=== PATIENT | male | born 1990 | race Two or more races ===

== ENCOUNTER 2016-12-26 20:06 | Inpatient (IN) | payer SELFPAY ==
[2016-12-26] MEDS ORDERED: NORMAL SALINE 1000 ML 1,000 ML IV PRN ×2 (21:28→22:25)
[2016-12-26] MEDS ORDERED: ONDANSETRON HCL INJ/PF 4 MG/2 ML SDV IV ONE (21:37)
[2016-12-26 22:09] LABS: HEMATOCRIT 45.9 % (37.9-51.0); HEMOGLOBIN 14.7 g/dL (13.5-17.0); HGB HCT DIFFERENCE -1.8; MEAN CORPUSCULAR HEMOGLOBIN 30.7 pg (27.0-33.4); MEAN CORPUSCULAR HGB CONC 32.1 g/dL (32.0-36.0); MEAN CORPUSCULAR VOLUME 95 fl (80-97); RED BLOOD COUNT 4.81 10^6/uL (4.35-5.55); RED CELL DISTRIBUTION WIDTH 13.1 % (11.5-14.0); VENOUS BLOOD BASE EXCESS -19.5 mmol/L; VENOUS BLOOD HCO3 9.8 mmol/L (20-32); VENOUS BLOOD PCO2 34.4 mmHg (35-63); WHITE BLOOD COUNT 24.8 10^3/uL (4.0-10.5)
[2016-12-26 22:12] LABS: VENOUS BLOOD PH 7.07 (7.30-7.42)
[2016-12-26 22:14] LABS: ALANINE AMINOTRANSFERASE 28 U/L (21-72); ALBUMIN 4.9 g/dL (3.5-5.0); ALKALINE PHOSPHATASE 106 U/L (38-126); ASPARTATE AMINO TRANSFERASE 18 U/L (17-59); BILIRUBIN,DIRECT 0.7 mg/dL (0.0-0.4); BILIRUBIN,TOTAL 1.3 mg/dL (0.2-1.3); BLOOD UREA NITROGEN 37 mg/dL (7-20); CALCIUM 9.5 mg/dL (8.4-10.2); CHLORIDE 87 mmol/L (98-107); CREATININE RESULT 2.13 mg/dL (0.52-1.25); SODIUM 135.8 mmol/L (137-145)
[2016-12-26 22:19] LABS: APPEARANCE,URINE CLEAR; BILIRUBIN,URINE NEGATIVE (NEGATIVE); GLUCOSE, URINE >=500 mg/dL (NEGATIVE); KETONES,URINE 80 mg/dL (NEGATIVE); LEUKOCYTE ESTERASE,URINE NEGATIVE (NEGATIVE); NITRITE,URINE NEGATIVE (NEGATIVE); PROTEIN,URINE NEGATIVE (NEGATIVE); URINE SPECIFIC GRAVITY 1.023; UROBILINOGEN,URINE NEGATIVE mg/dL (<2.0)
[2016-12-26 22:27] LABS: ANION GAP 41 (5-19)
[2016-12-26 22:29] LABS: CARBON DIOXIDE 8 mmol/L (22-30); GLUCOSE 1066 mg/dL (75-110)
[2016-12-26 22:33] LABS: BAND NEUTROPHILS % (MANUAL) 5 % (3-5); BASOPHILS % (MANUAL) 0 % (0-2); EOSINOPHILS % (MANUAL) 0 % (0-6); LYMPHOCYTES % (MANUAL) 2 % (13-45); TOTAL CELLS COUNTED 100
[2016-12-26] MEDS ORDERED: INSULIN REG, HUMAN 100 UNIT/ML 3 ML VIAL (PYX) IV ONE (22:34)
[2016-12-26 22:35] LABS: BURR CELLS 1+; POLYCHROMASIA SLIGHT; TOXIC GRANULATION 1+
[2016-12-26] MEDS ORDERED: INSULIN REG, HUMAN 100 UNIT/ML 3 ML VIAL (PYX) ONE (22:52)
--- NOTE | 2016-12-26 23:05 | ER Document Report ---
ED General - General Chief Complaint: High Blood Sugar Stated Complaint: HIGH BLOOD SUGAR DIABETIC Time Seen by Provider: 12/26/16 21:27 Mode of Arrival: Medic Information source: Patient Notes: 26-year-old diabetic male noted to have been in DKA back in 2011 presents confused with complaints of high blood sugar. 2 readings were noted to be high. Patient admits to nausea vomiting states he has not taken his insulin today TRAVEL OUTSIDE OF THE [place] IN LAST 30 DAYS: No - HPI Onset: Last week Onset/Duration: Persistent Quality of pain: Achy Severity: Moderate Pain Level: 3 Associated symptoms: Nausea, Vomiting, Weakness Exacerbated by: Denies Relieved by: Denies Similar symptoms previously: Yes Recently seen / treated by doctor: No - Related Data Allergies/Adverse Reactions: No Known Allergies Allergy (Unverified 03/13/11 03:33) Past Medical History - Social History Smoking Status: Never Smoker Cigarette use (# per day): No Chew tobacco use (# tins/day): No Smoking Education Provided: No Family History: Reviewed & Not Pertinent Pulmonary Medical History: Reports: Hx Asthma - childhood Denies: Hx Tuberculosis Endocrine Medical History: Reports: Hx Diabetes Mellitus Type 1 Psychiatric Medical History: Reports: Hx Depression Past Surgical History: Reports: Hx Thyroid Surgery, Hx Tonsillectomy. Denies: Hx Pacemaker - Immunizations Hx Diphtheria, Pertussis, Tetanus Vaccination: Yes Review of Systems - Review of Systems Notes: REVIEW OF SYSTEMS: CONSTITUTIONAL : Denies fever, chills, or sweats. Denies recent illness. EENT: Denies eye, ear, throat, or mouth pain or symptoms. Denies nasal or sinus congestion or discharge. Denies throat, tongue, or mouth swelling or difficulty swallowing. CARDIOVASCULAR: Denies chest pain. Denies palpitations or racing or irregular heart beat. Denies ankle edema. RESPIRATORY: Denies cough, cold, or chest congestion. Denies shortness of breath, difficulty breathing, or wheezing. GASTROINTESTINAL: Admits to nausea vomiting GENITOURINARY: Denies difficulty urinating, painful urination, burning, frequency, blood in urine, or discharge. MUSCULOSKELETAL: Denies back or neck pain or stiffness. Denies joint pain or swelling. SKIN: Denies rash, lesions or sores. HEMATOLOGIC : Denies easy bruising or bleeding. LYMPHATIC: Denies swollen, enlarged glands. NEUROLOGICAL: Admits to confusion PSYCHIATRIC: Denies anxiety or stress. Denies depression, suicidal ideation, or homicidal ideation. ALL OTHER SYSTEMS REVIEWED AND NEGATIVE. Dictation was performed using [employer] voice recognition software PHYSICAL EXAMINATION: GENERAL: Drowsy in moderate acute distress HEAD: Atraumatic, normocephalic. EYES: Pupils equal round and reactive to light, extraocular movements intact, sclera anicteric, conjunctiva are normal. ENT: Nares patent, oropharynx clear without exudates. Moist mucous membranes. NECK: Normal range of motion, supple without lymphadenopathy LUNGS: Breath sounds clear to auscultation bilaterally and equal. No wheezes rales or rhonchi. HEART: Tachycardic ABDOMEN: Soft, nontender, nondistended abdomen. No guarding, no rebound. No masses appreciated. Musculoskeletal: Normal range of motion, no pitting or edema. No cyanosis. NEUROLOGICAL: GCS is 15 patient's alert and oriented to questions but does appear drowsy PSYCH: Normal mood, normal affect. SKIN: Warm, Dry, normal turgor, no rashes or lesions noted. Physical Exam - Vital signs Vitals: Resp Pulse Ox 22 H 99 12/26/16 21:58 12/26/16 21:58 Course - Re-evaluation Re-evalutation: 12/27/16 00:13 Patient is in obvious DKA, he was given 4 L normal saline, insulin bolus and drip was immediately started. Patient will be admitted to the ICU as he is quite ill - Vital Signs Vital signs: Temp Pulse Resp BP Pulse Ox 23 H 93/47 L 98 12/26/16 23:17 12/26/16 23:17 12/26/16 23:17 - Laboratory Result Diagrams: 12/26/16 21:30 12/26/16 21:30 Laboratory results interpreted by me: 12/26/16 12/26/16 12/26/16 21:30 21:30 21:30 WBC 24.8 H Seg Neuts % (Manual) 88 H Lymphocytes % (Manual) 2 L Abs Neuts (Manual) 23.1 H VBG pH 7.07 L* VBG pCO2 34.4 L VBG HCO3 9.8 L Sodium 135.8 L Potassium 6.0 H* Chloride 87 L Carbon Dioxide 8 L* Anion Gap 41 H BUN 37 H Creatinine 2.13 H Est GFR ( Amer) 46 L Est GFR (Non-Af Amer) 38 L Glucose 1066 H* Direct Bilirubin 0.7 H Urine Glucose (UA) Urine Ketones 12/26/16 21:30 WBC Seg Neuts % (Manual) Lymphocytes % (Manual) Abs Neuts (Manual) VBG pH VBG pCO2 VBG HCO3 Sodium Potassium Chloride Carbon Dioxide Anion Gap BUN Creatinine Est GFR ( Amer) Est GFR (Non-Af Amer) Glucose Direct Bilirubin Urine Glucose (UA) >=500 H Urine Ketones 80 H Critical Care Note - Critical Care Note Total time excluding time spent on procedures (mins): 40 Comments: 40 minutes of critical care time spent in direct contact evaluating and reevaluating the patient, treating symptoms, reviewing labs and studies and speaking with family and consultants excluding any procedures Discharge - Discharge Clinical Impression: DKA (diabetic ketoacidoses) Qualifiers: Diabetes mellitus type: type 1 Diabetes mellitus complication detail: without coma Qualified Code(s): E10.10 - Type 1 diabetes mellitus with ketoacidosis without coma Condition: Poor Disposition: ADMITTED INPATIENT Admitting Provider: Hospitalist Unit Admitted: ICU
[2016-12-27] MEDS ORDERED: ACETAMINOPHEN 325 MG TABLET PO PRN (00:06)
[2016-12-27] MEDS ORDERED: GLUCAGON,HUMAN RECOMB 1 MG INJ IM PRN (00:06)
[2016-12-27] MEDS ORDERED: ONDANSETRON HCL INJ/PF 4 MG/2 ML SDV IV PRN ×2 (00:06→11:00)
[2016-12-27] MEDS ORDERED: DEXTROSE 40% GEL 15 GM TUBE PO PRN ×4 (00:06)
[2016-12-27] MEDS ORDERED: NORMAL SALINE 100 ML with INSULIN REGULAR, HUMAN 100 UNIT IV PRN ×2 (00:06)
[2016-12-27] MEDS ORDERED: DEXTROSE 50%-WATER 25 GM/50 ML DISP.SYRIN IV PRN ×4 (00:06)
[2016-12-27] MEDS ORDERED: GLUCAGON,HUMAN RECOMB 1 MG INJ SUBCUT PRN (00:06)
[2016-12-27] MEDS ORDERED: INSULIN REG, HUMAN 100 UNIT/ML 3 ML VIAL (PYX) IV ONE (00:07)
[2016-12-27] MEDS ORDERED: NORMAL SALINE 1000 ML 1,000 ML IV SCH (00:15)
[2016-12-27 00:46] LABS: BLOOD UREA NITROGEN 39 mg/dL (7-20); CALCIUM 8.1 mg/dL (8.4-10.2); CHLORIDE 102 mmol/L (98-107); CREATININE RESULT 2.01 mg/dL (0.52-1.25); MAGNESIUM 2.2 mg/dL (1.6-2.3); PHOSPHORUS 6.2 mg/dL (2.5-4.5); SODIUM 142.6 mmol/L (137-145)
[2016-12-27 01:04] LABS: ANION GAP 33 (5-19); POTASSIUM 4.5 mmol/L (3.6-5.0)
[2016-12-27 01:06] LABS: CARBON DIOXIDE 8 mmol/L (22-30); GLUCOSE 856 mg/dL (75-110)
[2016-12-27] MEDS: POTASSI CL 20 MEQ/D5-1/2NS 1L 1,000 ML IV PRN ×3 (03:10→13:12)
[2016-12-27 04:00] LABS: HEMATOCRIT 37.6 % (37.9-51.0); HEMOGLOBIN 13.3 g/dL (13.5-17.0); HGB HCT DIFFERENCE 2.3; MEAN CORPUSCULAR HEMOGLOBIN 30.5 pg (27.0-33.4); MEAN CORPUSCULAR HGB CONC 35.2 g/dL (32.0-36.0); RED BLOOD COUNT 4.36 10^6/uL (4.35-5.55); RED CELL DISTRIBUTION WIDTH 12.7 % (11.5-14.0); WHITE BLOOD COUNT 22.1 10^3/uL (4.0-10.5)
[2016-12-27 04:10] LABS: BLOOD UREA NITROGEN 37 mg/dL (7-20); CALCIUM 8.9 mg/dL (8.4-10.2); CREATININE RESULT 1.75 mg/dL (0.52-1.25); POTASSIUM 3.9 mmol/L (3.6-5.0)
[2016-12-27 04:21] LABS: CHLORIDE 112 mmol/L (98-107); SODIUM 149.3 mmol/L (137-145)
[2016-12-27 04:22] LABS: ANION GAP 18 (5-19); CARBON DIOXIDE 19 mmol/L (22-30)
[2016-12-27 04:23] LABS: GLUCOSE 421 mg/dL (75-110)
[2016-12-27 04:26] LABS: MEAN CORPUSCULAR VOLUME 86 fl (80-97)
[2016-12-27 04:29] LABS: BAND NEUTROPHILS % (MANUAL) 4 % (3-5); BASOPHILS % (MANUAL) 0 % (0-2); EOSINOPHILS % (MANUAL) 0 % (0-6); LYMPHOCYTES % (MANUAL) 3 % (13-45); TOTAL CELLS COUNTED 100
[2016-12-27 04:31] LABS: POIKILOCYTOSIS SLIGHT
[2016-12-27 04:32] LABS: STOMATOCYTES SLIGHT; TEAR DROP CELLS SLIGHT
--- NOTE | 2016-12-27 05:52 | PDOC H&P ---
History of Present Illness Admission Date/PCP: 12/27/16 00:06 Patient complains of: Abdominal pain nausea and vomiting History of Present Illness: DAVE GLEZ is a 26 year old male with a past medical history of insulin- dependent diabetes and Diabetic ketoacidosis who was in his usual state of health approximately 24 hours prior to presentation. Admitting polyuria polydipsia abdominal pain nausea with vomiting of gastric content denying fever chills or diarrhea. Recognizing the symptoms for DKA he is prompted to the emergency room where he is found to have severe diabetic ketoacidosis. He started on IV insulin IV fluid and referred to the hospitalist for admission. Past Medical History Pulmonary Medical History: Reports: Asthma - childhood Denies: Tuberculosis Endocrine Medical History: Reports: Diabetes Mellitus Type 1 Psychiatric Medical History: Reports: Depression Hematology: Reports: Anemia Past Surgical History Past Surgical History: Reports: Tonsillectomy Denies: Pacemaker Social History Smoking Status: Current Some Day Smoker Cigarettes Packs Per Day: 0.5 Number of Years Smokin Frequency of Alcohol Use: Social Hx Recreational Drug Use: No Hx Prescription Drug Abuse: No - Advance Directive Resuscitation Status: Full Code Family History Family History: Hypertension Parental Family History Reviewed: Yes Children Family History Reviewed: Yes Sibling(s) Family History Reviewed.: Yes Medication/Allergy Home Medications: Insulin Glargine,Hum.rec.anlog [Lantus] 30 unit SUBCUT QAM 03/13/11 Humalog SUBCUT PRN 03/15/11 Lisinopril 5 mg PO QAM 03/15/11 Allergies/Adverse Reactions: No Known Allergies Allergy (Unverified 03/13/11 03:33) Review of Systems ROS unobtainable: Due to mental status Physical Exam Vital Signs: Temp Pulse Resp BP Pulse Ox 19 122/66 100 12/27/16 04:31 12/27/16 04:31 12/27/16 04:31 General appearance: PRESENT: severe distress, thin Head exam: PRESENT: atraumatic, normocephalic Eye exam: PRESENT: conjunctiva pink, EOMI, PERRLA. ABSENT: scleral icterus Ear exam: PRESENT: normal external ear exam Mouth exam: PRESENT: dry mucosa Neck exam: ABSENT: carotid bruit, JVD, lymphadenopathy, thyromegaly Respiratory exam: PRESENT: clear to auscultation cruz, tachypnea. ABSENT: rales , rhonchi, wheezes Cardiovascular exam: PRESENT: RRR. ABSENT: diastolic murmur, rubs, systolic murmur Pulses: PRESENT: normal dorsalis pedis pul Vascular exam: PRESENT: normal capillary refill Rectal exam: PRESENT: deferred Extremities exam: PRESENT: full ROM. ABSENT: calf tenderness, clubbing, pedal edema Neurological exam: PRESENT: altered, oriented to person, oriented to situation, CN II-XII grossly intact. ABSENT: motor sensory deficit Psychiatric exam: PRESENT: appropriate affect, normal mood. ABSENT: homicidal ideation, suicidal ideation Skin exam: PRESENT: dry, intact, warm. ABSENT: cyanosis, rash Results Laboratory Results: 12/27/16 03:47 12/27/16 03:47 12/27/16 12/27/16 12/27/16 00:21 00:21 00:21 WBC RBC Hgb Hct MCV MCH MCHC RDW Plt Count Seg Neutrophils % Lymphocytes % Monocytes % Eosinophils % Basophils % Absolute Neutrophils Absolute Lymphocytes Absolute Monocytes Absolute Eosinophils Absolute Basophils Sodium 142.6 Potassium 4.5 D Chloride 102 Carbon Dioxide 8 L* Anion Gap 33 H BUN 39 H Creatinine 2.01 H Est GFR ( Amer) 50 L Est GFR (Non-Af Amer) 41 L Glucose 856 H* Cancelled Calcium 8.1 L Phosphorus 6.2 H Magnesium 2.2 12/27/16 12/27/16 03:47 03:47 WBC 22.1 H RBC 4.36 Hgb 13.3 L Hct 37.6 L MCV 86 D MCH 30.5 MCHC 35.2 RDW 12.7 Plt Count 198 Seg Neutrophils % Not Reportable Lymphocytes % Not Reportable Monocytes % Not Reportable Eosinophils % Not Reportable Basophils % Not Reportable Absolute Neutrophils Not Reportable Absolute Lymphocytes Not Reportable Absolute Monocytes Not Reportable Absolute Eosinophils Not Reportable Absolute Basophils Not Reportable Sodium 149.3 H Potassium 3.9 Chloride 112 H Carbon Dioxide 19 L D Anion Gap 18 BUN 37 H Creatinine 1.75 H Est GFR ( Amer) 58 L Est GFR (Non-Af Amer) 48 L Glucose 421 H* Calcium 8.9 Phosphorus Magnesium Assessment & Plan - Diagnosis (1) DKA (diabetic ketoacidoses) Qualifiers: Diabetes mellitus type: type 1 Diabetes mellitus complication detail: without coma Qualified Code(s): E10.10 - Type 1 diabetes mellitus with ketoacidosis without coma Is this a current diagnosis for this admission?: Yes Plan: Diabetic ketoacidosis patient has had some degree of polyuria polydipsia with nausea and uncontrolled hyperglycemia with supporting labs. Patient will receive IV fluids IV insulin serial chemistries every 6 hours for evaluation for electrolyte repletion. Continued evaluation for underlying cause if not found Patient will require diabetic education and consideration of mental health evaluation. - Time Time Spent: 50 to 70 Minutes
[2016-12-27] MEDS: HEPARIN SOD (PORCINE) 5,000 UNIT/ML 1 ML SYRINGE SUBCUT SCH ×3 (07:02→22:44)
[2016-12-27 08:32] LABS: ANION GAP 12 (5-19); BLOOD UREA NITROGEN 32 mg/dL (7-20); CALCIUM 8.6 mg/dL (8.4-10.2); CARBON DIOXIDE 22 mmol/L (22-30); CHLORIDE 114 mmol/L (98-107); CREATININE RESULT 1.51 mg/dL (0.52-1.25); GLUCOSE 246 mg/dL (75-110); POTASSIUM 3.9 mmol/L (3.6-5.0); SODIUM 148.3 mmol/L (137-145)
[2016-12-27] MEDS ORDERED: INSULIN GLARGINE,HUM.REC.ANLOG 1,000 UNIT/10 ML UNIT SUBCUT ONE (11:00)
[2016-12-27 12:36] LABS: ANION GAP 14 (5-19); BLOOD UREA NITROGEN 27 mg/dL (7-20); CALCIUM 8.3 mg/dL (8.4-10.2); CARBON DIOXIDE 20 mmol/L (22-30); CHLORIDE 113 mmol/L (98-107); CREATININE RESULT 1.26 mg/dL (0.52-1.25); GLUCOSE 242 mg/dL (75-110); POTASSIUM 4.4 mmol/L (3.6-5.0); SODIUM 146.9 mmol/L (137-145)
[2016-12-27] MEDS: NORMAL SALINE 1000 ML 1,000 ML IV PRN (13:07)
[2016-12-27] MEDS: INSULIN LISPRO 100 UNIT/ML 3 ML VIAL SUBCUT PRN ×2 (13:36→17:18)
[2016-12-27] MEDS: METOCLOPRAMIDE HCL 10 MG TABLET PO SCH ×2 (16:11→22:44)
[2016-12-27] MEDS ORDERED: INSULIN GLARGINE,HUM.REC.ANLOG 300 UNIT/3 ML INSULN.PEN SUBCUT SCH (18:00)
--- NOTE | 2016-12-27 18:13 | PDOC PROGRESS REPORT ---
Subjective Progress Note for:: 12/27/16 Subjective:: Complains of nausea after eating. Physical Exam Vital Signs: Temp Pulse Resp BP Pulse Ox 98.3 F 98 18 104/65 100 12/27/16 14:55 12/27/16 14:55 12/27/16 14:00 12/27/16 14:55 12/27/16 14:55 Intake & Output 12/26/16 12/27/16 12/28/16 06:59 06:59 06:59 Intake Total 2350 Output Total 300 Balance 2049 Weight 63.1 kg General appearance: PRESENT: no acute distress Eye exam: PRESENT: conjunctiva pink. ABSENT: scleral icterus Mouth exam: PRESENT: dry mucosa Neck exam: ABSENT: JVD Respiratory exam: PRESENT: clear to auscultation cruz. ABSENT: rales, rhonchi, wheezes Cardiovascular exam: PRESENT: RRR. ABSENT: diastolic murmur, rubs, systolic murmur GI/Abdominal exam: PRESENT: normal bowel sounds, soft. ABSENT: distended, guarding, mass, organolmegaly, rebound, tenderness Extremities exam: ABSENT: calf tenderness, clubbing, pedal edema Neurological exam: PRESENT: alert, awake, oriented to person, oriented to place , oriented to time, oriented to situation, CN II-XII grossly intact. ABSENT: motor sensory deficit Psychiatric exam: PRESENT: appropriate affect Skin exam: PRESENT: dry, intact, warm. ABSENT: cyanosis, rash Results Laboratory Results: 12/27/16 03:47 12/27/16 12:06 12/27/16 12/27/16 12/27/16 00:21 00:21 00:21 WBC RBC Hgb Hct MCV MCH MCHC RDW Plt Count Seg Neutrophils % Lymphocytes % Monocytes % Eosinophils % Basophils % Absolute Neutrophils Absolute Lymphocytes Absolute Monocytes Absolute Eosinophils Absolute Basophils Sodium 142.6 Potassium 4.5 D Chloride 102 Carbon Dioxide 8 L* Anion Gap 33 H BUN 39 H Creatinine 2.01 H Est GFR ( Amer) 50 L Est GFR (Non-Af Amer) 41 L Glucose 856 H* Cancelled Calcium 8.1 L Phosphorus 6.2 H Magnesium 2.2 12/27/16 12/27/16 12/27/16 03:47 03:47 08:09 WBC 22.1 H RBC 4.36 Hgb 13.3 L Hct 37.6 L MCV 86 D MCH 30.5 MCHC 35.2 RDW 12.7 Plt Count 198 Seg Neutrophils % Not Reportable Lymphocytes % Not Reportable Monocytes % Not Reportable Eosinophils % Not Reportable Basophils % Not Reportable Absolute Neutrophils Not Reportable Absolute Lymphocytes Not Reportable Absolute Monocytes Not Reportable Absolute Eosinophils Not Reportable Absolute Basophils Not Reportable Sodium 149.3 H 148.3 H Potassium 3.9 3.9 Chloride 112 H 114 H Carbon Dioxide 19 L D 22 Anion Gap 18 12 BUN 37 H 32 H Creatinine 1.75 H 1.51 H Est GFR ( Amer) 58 L > 60 Est GFR (Non-Af Amer) 48 L 57 L Glucose 421 H* 246 H Calcium 8.9 8.6 Phosphorus Magnesium 12/27/16 12:06 WBC RBC Hgb Hct MCV MCH MCHC RDW Plt Count Seg Neutrophils % Lymphocytes % Monocytes % Eosinophils % Basophils % Absolute Neutrophils Absolute Lymphocytes Absolute Monocytes Absolute Eosinophils Absolute Basophils Sodium 146.9 H Potassium 4.4 Chloride 113 H Carbon Dioxide 20 L Anion Gap 14 BUN 27 H Creatinine 1.26 H Est GFR ( Amer) > 60 Est GFR (Non-Af Amer) > 60 Glucose 242 H Calcium 8.3 L Phosphorus Magnesium Assessment & Plan - Diagnosis (1) DKA (diabetic ketoacidoses) Qualifiers: Diabetes mellitus type: type 1 Diabetes mellitus complication detail: without coma Qualified Code(s): E10.10 - Type 1 diabetes mellitus with ketoacidosis without coma Is this a current diagnosis for this admission?: Yes Plan: The patient had DKA most likely relates nausea vomiting decreased p.o. intake. The DKA has resolved with IV fluids and insulin. He has been restarted on his usual Lantus dose. (2) Nausea Is this a current diagnosis for this admission?: Yes Plan: The patient may have diabetic gastroparesis. We will start the patient on Reglan empirically. If this does not improve we may consult GI. - Time Time Spent with patient: 15-24 minutes - Inpatient Certification Medical Necessity: Need For IV Fluids
[2016-12-28] MEDS: NORMAL SALINE 1000 ML 1,000 ML IV PRN (02:34)
[2016-12-28 05:13] LABS: ABSOLUTE LYMPHOCYTES (AUTO) 2.4 10^3/uL (0.5-4.7); ABSOLUTE MONOCYTES (AUTO) 0.7 10^3/uL (0.1-1.4); ABSOLUTE NEUT (AUTO) 9.4 10^3/uL (1.7-8.2); BASOPHILS % (AUTO) 0.2 % (0-2); EOSINOPHILS % (AUTO) 0.2 % (0-6); HEMATOCRIT 37.1 % (37.9-51.0); HEMOGLOBIN 12.9 g/dL (13.5-17.0); HGB HCT DIFFERENCE 1.6; LYMPHOCYTES % (AUTO) 19.1 % (13-45); MEAN CORPUSCULAR HGB CONC 34.8 g/dL (32.0-36.0); MEAN CORPUSCULAR VOLUME 86 fl (80-97); MONOCYTES % (AUTO) 5.5 % (3-13); RED CELL DISTRIBUTION WIDTH 12.9 % (11.5-14.0); WHITE BLOOD COUNT 12.6 10^3/uL (4.0-10.5)
[2016-12-28 05:35] LABS: ANION GAP 11 (5-19); BLOOD UREA NITROGEN 17 mg/dL (7-20); CALCIUM 8.4 mg/dL (8.4-10.2); CARBON DIOXIDE 23 mmol/L (22-30); CHLORIDE 113 mmol/L (98-107); CREATININE RESULT 1.19 mg/dL (0.52-1.25); SODIUM 146.9 mmol/L (137-145)
[2016-12-28 06:03] LABS: GLUCOSE 21 mg/dL (75-110)
[2016-12-28] MEDS: HEPARIN SOD (PORCINE) 5,000 UNIT/ML 1 ML SYRINGE SUBCUT SCH (06:07)
[2016-12-28] MEDS ORDERED: POTASSIUM CHLORIDE 10 MEQ TABLET.SA PO ONE (07:00)
[2016-12-28] MEDS ORDERED: INSULIN GLARGINE,HUM.REC.ANLOG 300 UNIT/3 ML INSULN.PEN SUBCUT SCH (07:25)
[2016-12-28 08:47] VITALS: BP 104/65
--- NOTE | 2016-12-28 13:24 | PDOC DISCHARGE SUMMARY ---
General - Admit/Disc Date/PCP Admission Date/Primary Care Provider: 12/27/16 00:06 Discharge Date: 12/28/16 - Discharge Diagnosis (1) DKA (diabetic ketoacidoses) Is this a current diagnosis for this admission?: Yes (2) Nausea Is this a current diagnosis for this admission?: Yes Summary: Possibly secondary to gastroparesis. Patient was given Reglan with good improvement in his symptoms. - Additional Information Resuscitation Status: Full Code Discharge Diet: Diabetic Discharge Activity: Activity As Tolerated Home Medications: Insulin Lispro [Humalog Insulin (Lispro) 100 unit/mL] 0 unit SUBCUT .SLD SCALE 12/27/16 Insulin Glargine,Hum.rec.anlog [Lantus Insulin 100 Unit/mL] 25 unit SUBCUT QAMPM insuln.pen 12/28/16 Insulin Lispro [Humalog Insulin (Lispro) 100 unit/mL] 0 - 12 unit SUBCUT ACHSP PRN unit 12/28/16 Metoclopramide HCl [Reglan 10 mg Tablet] 10 mg PO ACHS PRN #20 tablet 12/28/16 History of Present Illness History of Present Illness: DAVE GLEZ is a 26 year old male with a history of type 1 diabetes who presented with DKA. Patient had nausea and vomiting along with some epigastric pain as the cause for his decreased p.o. intake. He had been compliant with taking his insulin. Patient is admitted for treatment of DKA. Hospital Course Hospital Course: 26-year-old male with history of type 1 diabetes who presented with nausea vomiting and was dehydrated. Patient was found to be in DKA and started on IV fluids and IV insulin. Patient had quick resolution of his DKA. The patient has what sounds like gastroparesis as he does have problems eating and vomiting shortly after eating. He was given Reglan here in the hospital and noticed dramatic improvement. He was sent home with a prescription for as needed Reglan. Patient was tolerating diet without difficulty and was felt that he was safe for discharge to home. Physical Exam Vital Signs: Temp Pulse Resp BP Pulse Ox 99.4 F 102 H 16 104/65 98 12/28/16 08:45 12/28/16 08:45 12/28/16 08:45 12/28/16 08:45 12/28/16 08:45 Intake & Output 12/27/16 12/28/16 12/29/16 06:59 06:59 06:59 Intake Total 2800 Output Total 700 Balance 2100 Weight 63.1 kg 70.1 kg General appearance: PRESENT: no acute distress Eye exam: PRESENT: conjunctiva pink. ABSENT: scleral icterus Mouth exam: PRESENT: moist, tongue midline Neck exam: ABSENT: JVD Respiratory exam: PRESENT: clear to auscultation cruz. ABSENT: rales, rhonchi, wheezes Cardiovascular exam: PRESENT: RRR. ABSENT: diastolic murmur, rubs, systolic murmur GI/Abdominal exam: PRESENT: normal bowel sounds, soft. ABSENT: distended, guarding, mass, organolmegaly, rebound, tenderness Extremities exam: ABSENT: calf tenderness, clubbing, pedal edema Neurological exam: PRESENT: alert, awake, oriented to person, oriented to place , oriented to time, oriented to situation, CN II-XII grossly intact. ABSENT: motor sensory deficit Psychiatric exam: PRESENT: appropriate affect Skin exam: PRESENT: dry, intact, warm. ABSENT: cyanosis, rash Results Laboratory Results: 12/28/16 04:20 12/28/16 04:20 12/28/16 12/28/16 04:20 04:20 WBC 12.6 H RBC 4.30 L Hgb 12.9 L Hct 37.1 L MCV 86 MCH 30.0 MCHC 34.8 RDW 12.9 Plt Count 181 Seg Neutrophils % 75.0 Lymphocytes % 19.1 Monocytes % 5.5 Eosinophils % 0.2 Basophils % 0.2 Absolute Neutrophils 9.4 H Absolute Lymphocytes 2.4 Absolute Monocytes 0.7 Absolute Eosinophils 0.0 Absolute Basophils 0.0 Sodium 146.9 H Potassium 3.0 L* D Chloride 113 H Carbon Dioxide 23 Anion Gap 11 BUN 17 Creatinine 1.19 Est GFR ( Amer) > 60 Est GFR (Non-Af Amer) > 60 Glucose 21 L* Calcium 8.4 Qualifiers [place] BEING DISCHARGED WITH ANY OF THE FOLLOWING DIAGNOSIS?: No Plan Discharge Plan: Patient is discharged home. Follow with primary care in 2 weeks. Time Spent: Less than 30 Minutes
== END 2016-12-28 09:25 | disposition home or self-care (01) | DRG 639 ==
LOC: ER 20:06 → EH 23:08 → UNDOADMIN 23:08 → EH 12-27 00:06 → 4N 12-27 14:39
PROVIDERS: ADMIT Internal Medicine; ATTEND Internal Medicine
DX: E10.10 Type 1 diabetes mellitus with ketoacidosis without coma (principal); Z79.899 Other long term (current) drug therapy; J45.909 Unspecified asthma, uncomplicated; F32.9 Major depressive disorder, single episode, unspecified; D64.9 Anemia, unspecified; E10.43 Type 1 diabetes mellitus with diabetic autonomic (poly)neuropathy; K31.84 Gastroparesis; F17.210 Nicotine dependence, cigarettes, uncomplicated; Z84.89 Family history of other specified conditions; Z79.4 Long term (current) use of insulin
CPT/HCPCS: 36415; 80048; 80053; 81001; 82803; 82962; 83735; 84100; 85025; 96374; 99291; J1644; J1815; J2405; J3480; J7030

== ENCOUNTER → 2018-02-03 | Outpatient (CLI) | payer OTHER ==
[2018-02-03 14:14] LABS: ABSOLUTE EOSINOPHILS # (AUTO) 0.2 10^3/uL (0.0-0.6); ABSOLUTE LYMPHOCYTES (AUTO) 1.4 10^3/uL (0.5-4.7); ABSOLUTE MONOCYTES (AUTO) 0.5 10^3/uL (0.1-1.4); ABSOLUTE NEUT (AUTO) 5.1 10^3/uL (1.7-8.2); BASOPHILS % (AUTO) 0.5 % (0-2); EOSINOPHILS % (AUTO) 3.1 % (0-6); HEMATOCRIT 41.5 % (37.9-51.0); HEMOGLOBIN 14.4 g/dL (13.5-17.0); LYMPHOCYTES % (AUTO) 19.6 % (13-45); MEAN CORPUSCULAR HEMOGLOBIN 29.5 pg (27.0-33.4); MEAN CORPUSCULAR HGB CONC 34.7 g/dL (32.0-36.0); MEAN CORPUSCULAR VOLUME 85 fl (80-97); MONOCYTES % (AUTO) 7.1 % (3-13); PLATELET COUNT 216 10^3/uL (150-450); RED BLOOD COUNT 4.88 10^6/uL (4.35-5.55); SEGMENTED NEUTROPHILS % (AUTO) 69.7 % (42-78); TOTAL CELLS COUNTED % (AUTO) 100 %; WHITE BLOOD COUNT 7.3 10^3/uL (4.0-10.5)
[2018-02-03 14:25] LABS: ALANINE AMINOTRANSFERASE 13 U/L (21-72); ALKALINE PHOSPHATASE 99 U/L (38-126); ANION GAP 13 (5-19); ASPARTATE AMINO TRANSFERASE 15 U/L (17-59); BILIRUBIN,DIRECT 0.3 mg/dL (0.0-0.4); BILIRUBIN,TOTAL 0.6 mg/dL (0.2-1.3); BLOOD UREA NITROGEN 18 mg/dL (7-20); CALCIUM 9.4 mg/dL (8.4-10.2); CARBON DIOXIDE 29 mmol/L (22-30); CHLORIDE 94 mmol/L (98-107); CHOLESTEROL 192.38 mg/dL (0-200); POTASSIUM 4.6 mmol/L (3.6-5.0); TOTAL PROTEIN 7.4 g/dL (6.3-8.2); TRIGLYCERIDES 132 mg/dL (<150)
[2018-02-03 14:39] LABS: DIRECT LDL 128 mg/dL (<100)
[2018-02-03 14:45] LABS: GLUCOSE 474 mg/dL (75-110)
== END ==
LOC: CCC 12:53
DX: E11.8 Type 2 diabetes mellitus with unspecified complications (principal)
CPT/HCPCS: 36415; 80053; 80061; 82570; 83036; 85025